=== PATIENT | female | born 1965 | race African-American/Black ===

== ENCOUNTER 2017-02-24 06:29 | Day surgery (SDC) | payer OTHER ==
[~2017-02-24] VITALS: Ht 162.6 cm; Wt 66.0 kg
[~2017-02-24 06:29] MED LIST: DDAV1 PO; Depakene PO; GABA-531 PO; KCL GT; LANS30CA55 PO; LEVE250T55 PO; METO25 PO; SCOP1PAT11 TD; SENN-30 PO
[2017-02-24] MEDS ORDERED: SODIUM CHLORIDE 0.9% 1,000 ML IV ONE ×2 (06:37→07:30)
[2017-02-24 07:12] LABS: GLUCOSE,POINT OF CARE 84 MG/DL (70-110)
[2017-02-24] MEDS ORDERED: MIDAZOLAM HCL 2 MG/2 ML VIAL ONE (08:01)
[2017-02-24] MEDS ORDERED: FentaNYL CITRATE-PF 100 MCG/2 ML VIAL ONE (08:01)
[2017-02-24] MEDS ORDERED: MethylPREDNISolone SOD SUCC 125 MG/2 ML VIAL IVP ONE (08:45)
[2017-02-24] MEDS ORDERED: BENZOCAINE 20% 50 MCG/SPRAY 57 GM TP ONE (12:00)
[2017-02-24] MEDS ORDERED: LIDOCAINE HCL 2% 30 ML JELLY TP ONE (12:00)
[2017-02-24] MEDS ORDERED: LIDOCAINE HCL 4% 50 ML SOLUTION TP ONE (12:00)
[2017-02-24] MEDS ORDERED: OXYGEN THERAPY IH SCH (20:00)
== END 2017-02-24 10:50 ==
LOC: EDSEX 06:29 → SURGERY 06:29
PROVIDERS: ATTEND Internal Medicine Critical Care Medicine
DX: J38.4 Edema of larynx (principal); J96.10 Chronic respiratory failure, unspecified whether with hypoxia or hypercapnia; G93.1 Anoxic brain damage, not elsewhere classified; Z88.8 Allergy status to other drugs, medicaments and biological substances
CPT/HCPCS: 31623; 31624; 71010; 82962; 87015 ×2; 87070; 87077; 87101; 87186; 87205; 87220; 88108; 88312; J2250; J3010; J7030